=== PATIENT | female | born 1990 | race Caucasian/White ===

== ENCOUNTER 2022-07-19 08:06 | Outpatient (CLI) | payer OTHER ==
--- NOTE | 2022-07-21 12:52 | MRI Report ---
PROCEDURE: MRI thoracic spine without contrast INDICATIONS: WEAKNESS TECHNIQUE: Noncontrast sagittal T1 spine echo and T2 fast spin echo, sagittal STIR, axial T1 and T2 fast spin ec ho through the thoracic spine. COMPARISON: None. FINDINGS: Image quality: Excellent. Alignment and Curvature: There is normal bony alignment. Bone Marrow: Marrow is of normal overall signal. No acute vertebral body compression fractures. Spinal Cord: Visualized spinal cord is normal in size and signal. There is mild intermittent promin ence of the spinal cord central canal measuring up to 1 to 2 mm in diameter at the cervicothoracic ju nction, T6-7 level, T10 and T12 levels Paraspinous Soft Tissues: No paravertebral masses. Miscellaneous: On axial images, central canal and foramina appear widely patent at all scanned level s. IMPRESSION: Mild intermittent spinal cord central canal prominence measuring 1 to 2 mm in diameter Reviewed by: Gabino Bright MD on 07/21/2022 11:50 AM [facility] Approved by: Gabino Bright MD on 07/21/2022 11:50 AM [facility] Station ID: [id number]
== END 2022-07-19 08:07 | disposition home or self-care (01) ==
LOC: DI 08:06
PROVIDERS: ATTEND Family Medicine
DX: R53.1 Weakness (principal)

== ENCOUNTER 2022-08-05 15:34 | Outpatient (CLI) | payer OTHER ==
--- NOTE | 2022-08-06 08:00 | MRI Report ---
PROCEDURE: LUMBAR SPINE WO INDICATIONS: WEAKNESS TECHNIQUE: Noncontrast sagittal T1 spin echo and T2 fast echo, sagittal STIR, axial T1 and T2 fast spin echo thr ough the lumbar spine. In cases with scoliosis, additional coronal T2 fast spin echo may be performe d. COMPARISON: None. FINDINGS: Image quality: Excellent. Alignment and Curvature: There is normal bony alignment. Bone Marrow: Marrow is of normal overall signal. No acute vertebral body compression fractures. Spinal Cord: Conus medullaris terminates at the L1-L2 level. Visualized cord demonstrates normal si gnal and size. Incidental note made of mild prominence of the central canal of the lower thoracic cor d. Paraspinous Soft Tissues: No paravertebral masses. T12-L1: Normal in appearance. L1-L2: Normal in appearance. L2-L3: Normal in appearance. L3-L4: Normal in appearance. L4-L5: Mild facet hypertrophy. Mild disc bulge. No canal stenosis or foraminal stenosis. L5-S1: Posterior annulus tear plus mild broad-based left paracentral disc protrusion. Disc material abuts the left S1 nerve root in the left lateral recess. No central canal stenosis or foraminal sten osis. IMPRESSION: 1. At L5-S1 there is annulus tear associated with mild broad-based left paracentral disc protrusion. Question: Does this patient have S1 radicular symptoms? 2. No canal stenosis or foraminal stenosis. Reviewed by: Anand Portillo MD on 08/06/2022 7:59 AM PDT Approved by: Anand Portillo MD on 08/06/2022 7:59 AM PDT Station ID: [id number]
--- NOTE | 2022-08-06 08:07 | MRI Report ---
PROCEDURE: CERVICAL SPINE WO INDICATIONS: WEAKNESS TECHNIQUE: Noncontrast sagittal T1 spin echo and T2 fast spin echo, sagittal STIR, foraminal oblique sagittal T2 fast spin echo, and axial gradient echo or T2 fast spin echo through the cervical spine. COMPARISON: None. FINDINGS: Image quality: Excellent. Alignment and Curvature: There is normal bony alignment. Bone Marrow: Marrow demonstrates normal overall signal. Spinal Cord: Visualized spinal cord has normal size and signal. No cerebellar tonsillar herniation. Paraspinous Soft Tissues: No paravertebral masses. Prevertebral soft tissues are normal in thicknes s. C2-C3: Normal in appearance. C3-C4: Mild disc bulge. Mild bilateral uncovertebral joint hypertrophy. No canal stenosis. Mild rig ht foraminal narrowing and moderate left foraminal narrowing with mild flattening deformity on the ex iting left C4 nerve root. C4-C5: Normal in appearance. C5-C6: Disc bulge. No canal stenosis. Bilateral uncovertebral joint hypertrophy. Bilateral moderate foraminal narrowing with flattening deformity and the exiting bilateral C6 nerve roots. C6-C7: Minimal disc bulge. No canal stenosis or foraminal stenosis. C7-T1: Normal in appearance. IMPRESSION: 1. Mild cervical spondylitic change with bilateral uncovertebral joint hypertrophy at C3-C4 and C5-C6 . 2. No central canal stenosis. 3. Multilevel foraminal narrowing as described above. There is moderate left foraminal narrowing at C 3-C4 and moderate bilateral foraminal narrowing at C5-C6. Reviewed by: Anand Portillo MD on 08/06/2022 8:06 AM PDT Approved by: Anand Portillo MD on 08/06/2022 8:06 AM PDT Station ID: [id number]
--- NOTE | 2022-08-06 10:05 | MRI Report ---
PROCEDURE: BRAIN WO INDICATIONS: WEAKNESS TECHNIQUE: Noncontrast axial T1 spin echo, axial T2 fast spin echo, sagittal and axial FLAIR, coronal T2 fast sp in echo, axial gradient echo, axial diffusion and ADC through the brain. COMPARISON: None. FINDINGS: Image quality: Excellent. CSF Spaces: Basal cisterns are patent. No extra-axial fluid collections. Ventricles are normal in size and shape. Brain: No intracranial masses or hemorrhage. Schreiber/white matter interface is normal. Brainstem appe ars normal. Diffusion-weighted images demonstrate no acute ischemic insult. No chronic ischemic ins ults. Normal intravascular flow voids are present. Skull and face: Calvarium has normal marrow signal. Orbits appear normal. Sinuses: Sinuses and mastoids are clear. IMPRESSION: 1. Negative evaluation of the brain. No explanation for weakness. 2. No recent infarct. Reviewed by: Kary Patricia MD on 08/06/2022 9:04 AM [facility] Approved by: Kary Patricia MD on 08/06/2022 9:04 AM [facility] Station ID: [id number]
== END 2022-08-05 15:35 | disposition home or self-care (01) ==
LOC: DI 15:34
PROVIDERS: ATTEND Family Medicine
DX: M51.37 Other intervertebral disc degeneration, lumbosacral region (principal); M51.27 Other intervertebral disc displacement, lumbosacral region; M47.816 Spondylosis without myelopathy or radiculopathy, lumbar region